=== PATIENT | female | born 1945 | race Caucasian/White ===

== ENCOUNTER 2017-03-18 22:24 | Emergency (ER) | payer MEDICARE, BC ==
--- NOTE | 2017-03-18 22:36 | Emergency Department Record ---
History of Present Illness - General Stated Complaint: LT HAND AND RING FINGER SWELLING Time Seen by Provider: 03/18/17 22:31 Source: Patient Mode of Arrival: Ambulatory Limitations: No limitations - History of Present Illness Initial Comments: 71 yo female presents to ED for evaluation of swelling to the left ring finger after the patient began wearing her ring yesterday. Patient reports that she underwent trigger finger release 1 week ago, denies any complications from the surgery. Patient reports that she put her ring on yesterday, but the distal portion of the finger has swelled and she is unable to remove the ring. Patient denies redness at her surgery site, fevers, chills, or other injury. Complaint: Injury to:: Left, Finger Onset/Timin -: Days(s) Other Extremity Injury: Fingers: Left Other Injuries: None Place: Home Improves With: None Worsens With: None Associated Symptoms: Denies other symptoms - Related Data Home Medications Medication Instructions Recorded Confirmed Last Taken Blood Pressure Pill 1 tab PO DAILY 03/18/17 03/18/17 Unknown Bupropion HCl 1 tab PO DAILY 03/18/17 03/18/17 Unknown Venlafaxine HCl [Effexor] 1 tab PO DAILY 03/18/17 03/18/17 Unknown Allergies Allergy/AdvReac Type Severity Reaction Status Date / Time No Known Drug Allergies Allergy Verified 03/18/17 22:38 Review of Systems Constitutional: Denies: Chills, Fever, Malaise, Night sweats Eyes: Denies: Eye discharge, Eye pain ENT: Denies: Congestion, Ear pain, Epistaxis Respiratory: Denies: Cough, Dyspnea Cardiovascular: Denies: Chest pain, Dyspnea on exertion Endocrine: Denies: Fatigue, Heat or cold intolerance Gastrointestinal: Denies: Abdominal pain, Nausea, Vomiting Genitourinary: Denies: Incontinence, Retention Musculoskeletal: Reports: Other (finger swelling). Denies: Arthralgia, Back pain, Gout, Joint swelling Skin: Denies: Bruising, Change in color, Change in hair/nails Neurological: Denies: Abnormal gait, Confusion, Headache, Seizure Psychiatric: Denies: Anxiety Hematological/Lymphatic: Denies: Anemia, Blood Clots Physical Exam - General General Appearance: Alert, Oriented x3, Cooperative, No acute distress Limitations: No limitations - Head Head exam: Atraumatic, Normocephalic, Normal inspection Head exam detail: negative: Abrasion, Contusion, Rivas's sign, General tenderness, Hematoma, Laceration - Eye Eye exam: Normal appearance. negative: Conjunctival injection, Periorbital swelling, Periorbital tenderness, Scleral icterus - ENT Ear exam: negative: Auricular hematoma, Auricular trauma Nasal Exam: negative: Active bleeding, Discharge, Dried blood, Foreign body Mouth exam: negative: Drooling, Laceration, Muffled voice, Tongue elevation - Neck Neck exam: Normal inspection. negative: Meningismus, Tenderness - Respiratory Respiratory exam: Normal lung sounds bilaterally. negative: Rales, Respiratory distress, Rhonchi, Stridor - Cardiovascular Cardiovascular Exam: Regular rate, Normal rhythm, Normal heart sounds - GI/Abdominal GI/Abdominal exam: Soft. negative: Rebound, Rigid, Tenderness - Rectal Rectal exam: Deferred - exam: Deferred - Extremities Extremities exam: Pedal edema, Tenderness, Other (STS and edema distal to the patient's ring, no finger necrosis noted, FROM is present.). negative: Calf tenderness - Back Back exam: Denies: CVA tenderness (R), CVA tenderness (L) - Neurological Neurological exam: Alert, Normal gait, Oriented X3 - Psychiatric Psychiatric exam: Normal affect, Normal mood - Skin Skin exam: Normal color. negative: Abrasion Type of lesion: negative: abrasion Course Vital Signs 03/18/17 22:30 Temperature 97.7 F Pulse Rate [ 92 H Pulse Ox Probe] Respiratory 16 Rate Blood Pressure 161/97 [Right Arm] Pulse Ox 96 - Reevaluation(s) Reevaluation #2: 03/18/17 23:23 Patient's wedding ring was removed without complications, and appears stable for discharge at this time. Disposition Disposition: Discharge Clinical Impression: Foreign body finger Disposition: Home, Self-Care Condition: (2) Stable Instructions: Soft Tissue Foreign Body (ED) Additional Instructions: Return to ED if your symptoms worsen or if you have any concerns. Follow-up with your surgeon in 3-5 days as directed. Time of Disposition: 23:23 Quality - Quality Measures Quality Measures: N/A - Blood Pressure Screening Does Patient Have Any of the Following: No Blood Pressure Classification: Hypertensive Reading Systolic Measurement: 161 Diastolic Measurement: 97 Screening for High Blood Pressure: < First Hypertensive BP, F/U Documented > [ [id number]] First Hypertensive Follow-up Interventions: Referral to alternative/primary care provider.
== END 2017-03-18 23:29 | disposition home or self-care (01) ==
LOC: ER 22:24
DX: S60.445A External constriction of left ring finger, initial encounter (principal); W49.04XA Ring or other jewelry causing external constriction, initial encounter
CPT/HCPCS: 99282